=== PATIENT | male | born 1990 | race Caucasian/White ===

== ENCOUNTER 2018-10-22 14:00 | Emergency (ER) | payer OTHER ==
[~2018-10-22] VITALS: Ht 167.6 cm; Wt 72.6 kg
[~2018-10-22 14:00] MED LIST: DOLOGESIC CAPLE1 TAB PO; IMODIUM A-D2 MG PO
== END 2018-10-22 17:49 | disposition home or self-care (01) ==
LOC: ER 14:00
DX: N20.1 Calculus of ureter (principal); N20.0 Calculus of kidney

== ENCOUNTER 2019-09-27 22:55 | Emergency (ER) | payer OTHER ==
[~2019-09-27] VITALS: Ht 170.2 cm; Wt 77.1 kg
[2019-09-28] MEDS ORDERED: KETO10TA2 PO (03:09)
== END 2019-09-28 03:18 | disposition home or self-care (01) ==
LOC: ER 22:55
DX: T15.11XA Foreign body in conjunctival sac, right eye, initial encounter (principal); X58.XXXA Exposure to other specified factors, initial encounter; Y93.89 Activity, other specified; Y92.69 Other specified industrial and construction area as the place of occurrence of the external cause; Y99.8 Other external cause status

== ENCOUNTER 2020-01-19 03:13 | Emergency (ER) | payer OTHER ==
[~2020-01-19] VITALS: Ht 170.2 cm; Wt 81.6 kg
[~2020-01-19 03:13] MED LIST changes: +KETO10TA2 PO
== END 2020-01-19 12:05 | disposition home or self-care (01) ==
LOC: ER 03:13
DX: N20.1 Calculus of ureter (principal); N20.0 Calculus of kidney; R10.32 Left lower quadrant pain

== ENCOUNTER 2020-01-21 20:17 | Emergency (ER) | payer OTHER ==
[~2020-01-21] VITALS: Ht 170.2 cm; Wt 77.1 kg
== END 2020-01-21 22:44 | disposition home or self-care (01) ==
LOC: ER 20:17
DX: R10.31 Right lower quadrant pain (principal)

== ENCOUNTER 2020-01-22 21:41 | Emergency (ER) | payer OTHER ==
[~2020-01-22] VITALS: Ht 170.2 cm; Wt 77.1 kg
== END 2020-01-23 15:33 | disposition home or self-care (01) ==
LOC: ER 21:41
DX: N20.1 Calculus of ureter (principal)

== ENCOUNTER 2021-08-25 10:51 | Emergency (ER) | payer OTHER ==
[~2021-08-25] VITALS: Ht 167.6 cm; Wt 81.2 kg
== END 2021-08-25 17:18 | disposition home or self-care (01) ==
LOC: ER 10:51
DX: I10 Essential (primary) hypertension (principal); G47.30 Sleep apnea, unspecified; R51.9 Headache, unspecified

== ENCOUNTER 2023-05-28 14:52 | Emergency (ER) | payer OTHER ==
[~2023-05-28] VITALS: Ht 170.2 cm; Wt 73.5 kg
[2023-05-28] MEDS ORDERED: NAPROXEN375 MG (15:51)
[2023-05-28] MEDS ORDERED: ZESTRIL5 MG (15:51)
[2023-05-28] MEDS ORDERED: CLEOCIN HCL150 MG PO (15:51)
== END 2023-05-28 18:17 | disposition home or self-care (01) ==
LOC: ER 14:53
DX: L02.425 Furuncle of right lower limb (principal); Z91.048 Other nonmedicinal substance allergy status

== ENCOUNTER → 2023-08-11 | Emergency (ER) | payer OTHER ==
[~2023-08-11] VITALS: Ht 167.6 cm; Wt 74.8 kg
[~2023-08-11] MED LIST changes: +CLEOCIN HCL150 MG PO; +NAPROXEN375 MG; +ZESTRIL5 MG
== END | disposition left against medical advice (07) ==
LOC: ER 22:45
DX: Z53.21 Procedure and treatment not carried out due to patient leaving prior to being seen by health care provider (principal)